=== PATIENT | female | born 1975 | race African-American/Black ===

== ENCOUNTER 2018-06-15 12:24 | Emergency (ER) | payer OTHER ==
[2018-06-15 12:33] VITALS: BP 138/73; PULSE 104; TEMP 98; BMI 28.5
--- NOTE | 2018-06-15 13:14 | PDOC ---
History of Present Illness - General Chief Complaint: Pain Stated Complaint: PATIENT HERE FOR RT. BREAST PAIN Time Seen by Provider: 06/15/18 12:41 - History of Present Illness Initial Comments: 06/15/18 13:10 43-year-old female without comorbidities presents for evaluation of right breast pain times one week. She had a prior breast surgery year ago and had a mass removed she is unsure of the etiology of the mass Past History - Past Medical History Allergies/Adverse Reactions: Allergies Allergy/AdvReac Type Severity Reaction Status Date / Time No Known Allergies Allergy Verified 06/15/18 12:33 Home Medications: Ambulatory Orders NK [No Known Home Medication] 06/15/18 COPD: No Other medical history: right breast lump removed - Suicide/Smoking/Psychosocial Hx Smoking History: Never smoked Information on smoking cessation initiated: No Hx Alcohol Use: No Drug/Substance Use Hx: No Review of Systems - Review of Systems Constitutional: No: Fever Integumentary: Yes: See HPI *Physical Exam - Vital Signs Last Vital Signs Temp Pulse Resp BP Pulse Ox 98 F 104 H 19 138/73 100 06/15/18 12:31 06/15/18 12:31 06/15/18 12:31 06/15/18 12:31 06/15/18 12:31 - Physical Exam Comments: 06/15/18 13:12 Right breast examination done with female nurse in the room. Skin color and temperature are normal. There is nipple retraction without discharge. There is a large firm and tender mass on the 9 to 3 o'clock position about 4 cm in diameter above the right nipple. Scar in this area is well-healed. No discharge can be expressed from the nipple. There is mild axillary adenopathy. There is no induration of the skin or areas of fluctuance. Medical Decision Making - Medical Decision Making 06/15/18 13:13 I will refer patient to breast surgery this mass may represent neoplasm versus scar tissue *DC/Admit/Observation/Transfer Diagnosis at time of Disposition: Breast mass in female - Discharge Dispostion Disposition: HOME Condition at time of disposition: Stable Decision to Admit order: No - Referrals Referrals: Tristan Jeffers MD [Staff Physician] - - Patient Instructions Additional Instructions: Follow-up with general surgery in 1-2 days for further evaluation and treatment options. Please follow-up without fail. - Post Discharge Activity
== END 2018-06-15 14:13 | disposition home or self-care (01) ==
LOC: JERFT 12:24
DX: N63.11 Unspecified lump in the right breast, upper outer quadrant (principal)
CPT/HCPCS: 99281-25